=== PATIENT | male | born 1985 | race Caucasian/White ===

== ENCOUNTER 2017-07-05 14:12 | Emergency (ER) | payer SELFPAY ==
[~2017-07-05] VITALS: Ht 167.6 cm; Wt 81.8 kg
[~2017-07-05 14:12] MED LIST: BACITRACIN OP; BENTYL 10MG10 MG/CAP PO; CIPRO 500MG TA500 MG PO; LOMOTIL 0.025 M1 TAB PO; LORTAB 5/500 501 TAB PO; NO HOME MEDICATIONS; NORCO 325 MG-51 TAB PO; PEPCID 20MG TAB20 MG PO; PERCOCET 325 MG1 TA2 PO; ULTRAM50 MG PO; [UNRECOGNIZED DRUG - OTHER]; [UNRECOGNIZED DRUG - OTHER] OP
[2017-07-05 14:15] VITALS: BP 139/92; TEMP 98.6
[2017-07-05] MEDS ORDERED: NORCO 325 MG-51 TAB PO (15:33)
[2017-07-05] MEDS ORDERED: FLEXERIL 1010 MG/TAB PO (15:33)
[2017-07-05 15:45] VITALS: PULSE 77
== END 2017-07-05 15:47 | disposition home or self-care (01) ==
LOC: COL.ER 14:12
DX: S29.002A Unspecified injury of muscle and tendon of back wall of thorax, initial encounter (principal); M62.830 Muscle spasm of back; X50.0XXA Overexertion from strenuous movement or load, initial encounter
CPT/HCPCS: J1170; J1885; J2360

== ENCOUNTER 2017-08-03 09:49 | Outpatient (RCR) | payer OTHER ==
[~2017-08-03 09:49] MED LIST changes: +FLEXERIL 1010 MG/TAB PO
== END 2017-10-10 | disposition home or self-care (01) ==
LOC: WSOH
DX: S29.012A Strain of muscle and tendon of back wall of thorax, initial encounter (principal); X50.0XXA Overexertion from strenuous movement or load, initial encounter; Y99.0 Civilian activity done for income or pay

== ENCOUNTER 2021-03-18 11:16 | Emergency (ER) | payer BC ==
[~2021-03-18] VITALS: Ht 167.6 cm; Wt 104.5 kg
[2021-03-18 11:25] VITALS: BP 169/91
[2021-03-18] MEDS ORDERED: NORFLEX 10100 MG/TAB PO (13:41)
[2021-03-18 13:49] VITALS: PULSE 95
== END 2021-03-18 13:49 | disposition home or self-care (01) ==
LOC: COL.ER 11:16
DX: M54.5 Low back pain (principal)

== ENCOUNTER 2021-10-07 10:45 | Emergency (ER) | payer SELFPAY ==
[~2021-10-07] VITALS: Ht 167.6 cm; Wt 113.6 kg
[~2021-10-07 10:45] MED LIST changes: +NORFLEX 10100 MG/TAB PO
[2021-10-07 11:43] VITALS: BP 160/108; PULSE 97; TEMP 98.7
[2021-10-07] MEDS ORDERED: PREDNISONE20 MG PO (14:05)
== END 2021-10-07 14:15 | disposition home or self-care (01) ==
LOC: COL.ER 10:45
DX: R06.02 Shortness of breath (principal)
CPT/HCPCS: Q9967

== ENCOUNTER 2021-11-03 11:31 | Outpatient (RCR) | payer OTHER ==
[~2021-11-03 11:31] MED LIST changes: +PREDNISONE20 MG PO
== END 2021-11-19 | disposition still patient (30) ==
LOC: WSOH
DX: T65.831A Toxic effect of fiberglass, accidental (unintentional), initial encounter (principal); J98.01 Acute bronchospasm; Y99.0 Civilian activity done for income or pay; G47.30 Sleep apnea, unspecified; Z98.890 Other specified postprocedural states

== ENCOUNTER → 2021-12-12 | Outpatient (CLI) | payer SELFPAY | LOC: COL.RAD 11-07 14:00 | DX: R51.9 Headache, unspecified (principal); R90.82 White matter disease, unspecified ==

== ENCOUNTER 2022-03-14 20:48 | Emergency (ER) | payer OTHER ==
[~2022-03-14] VITALS: Ht 167.6 cm; Wt 113.6 kg
[2022-03-14 21:08] VITALS: TEMP 98.2
[2022-03-14 22:18] LABS: BASO # 0.1 K/mm3 (0.0-0.2); BASO % 0.6 % (0.0-2.0); EOS # 0.3 K/mm3 (0.0-0.7); EOS % 2.9 % (0.0-4.0); GRAN # 6.1 K/mm3 (1.4-6.5); GRAN % 67.7 % (42.2-75.2); HEMATOCRIT 45.5 % (42.0-52.0); HEMOGLOBIN 16.6 g/dl (13.5-18.0); LYMPH # 1.8 K/mm3 (1.2-3.4); LYMPH % 19.8 % (20.0-51.0); MEAN CELL VOLUME 87 fl (80.0-100.0); MEAN CORPUSCULAR HEMOGLOBIN 32 pg (27-31); MEAN CORPUSCULAR HGB CONC 37 g/dl (33.0-37.0); MEAN PLATELET VOLUME 9.6 fl (7.4-10.4); MONO # 0.8 K/mm3 (0.1-0.6); MONO % 8.7 % (1.7-9.3); PLATELET COUNT 329 K/mm3 (130-400); RED BLOOD COUNT 5.23 M/mm3 (4.20-5.60); REDCELL DISTRIBUTION WIDTH-CV 11.6 % (11.5-14.5)
[2022-03-14 22:33] LABS: ALBUMIN 4.2 gm/dL (3.5-5.0); BILIRUBIN,TOTAL 0.8 mg/dL (0.2-1.2); CALCIUM 9.6 mg/dL (8.4-10.2); CREATININE, serum 0.87 mg/dL (0.72-1.25); TOTAL PROTEIN 7.8 gm/dL (6.2-8.1)
[2022-03-14] MEDS ORDERED: NORCO 325 MG-51 TAB PO (22:54)
[2022-03-14 23:30] VITALS: BP 152/78; PULSE 76
== END 2022-03-14 23:30 | disposition home or self-care (01) ==
LOC: COL.ER 20:48
PROVIDERS: Family Medicine
DX: M79.622 Pain in left upper arm (principal)
CPT/HCPCS: J1100

== ENCOUNTER 2022-08-21 12:03 | Emergency (ER) | payer OTHER ==
[~2022-08-21] VITALS: Ht 167.6 cm; Wt 113.6 kg
[2022-08-21 12:25] VITALS: TEMP 98.4
[2022-08-21] MEDS ORDERED: CRUTCHES MC ×3 (13:22→13:44)
[2022-08-21 13:30] VITALS: BP 132/78; PULSE 88
== END 2022-08-21 14:00 | disposition home or self-care (01) ==
LOC: COL.ER 12:03
DX: S99.911A Unspecified injury of right ankle, initial encounter (principal); W11.XXXA Fall on and from ladder, initial encounter; X50.1XXA Overexertion from prolonged static or awkward postures, initial encounter

== ENCOUNTER 2023-12-02 20:43 | Emergency (ER) | payer OTHER ==
[~2023-12-02] VITALS: Ht 167.6 cm; Wt 123.6 kg
[~2023-12-02 20:43] MED LIST changes: +CRUTCHES MC
[2023-12-02] MEDS ORDERED: Acetaminophen 500 MG TAB PO ONE (21:00)
[2023-12-02 21:36] LABS: BASO # 0.1 K/mm3 (0.0-0.2); BASO % 0.9 % (0.0-2.0); EOS # 0.4 K/mm3 (0.0-0.7); EOS % 3.6 % (0.0-4.0); GRAN # 6.2 K/mm3 (1.4-6.5); GRAN % 58.8 % (42.2-75.2); HEMATOCRIT 46.1 % (42.0-52.0); HEMOGLOBIN 16.9 g/dl (13.5-18.0); MEAN CELL VOLUME 88 fl (80.0-100.0); MEAN CORPUSCULAR HEMOGLOBIN 32 pg (27-31); MEAN CORPUSCULAR HGB CONC 37 g/dl (33.0-37.0); MEAN PLATELET VOLUME 9.9 fl (7.4-10.4); MONO # 0.9 K/mm3 (0.1-0.6); MONO % 8.4 % (1.7-9.3); PLATELET COUNT 335 K/mm3 (130-400); RED BLOOD COUNT 5.25 M/mm3 (4.20-5.60); REDCELL DISTRIBUTION WIDTH-CV 11.9 % (11.5-14.5)
[2023-12-02 21:54] LABS: ALANINE AMINOTRANSFERASE 72 U/L (0-55); ALBUMIN 4.3 g/dL (3.5-5.0); ALKALINE PHOSPHATASE 68 U/L (40-150); ANION GAP 14 mmol/L (7-16); AST,SGOT 42 U/L (5-34); BILIRUBIN,TOTAL 0.6 mg/dL (0.2-1.2); BLOOD UREA NITROGEN 13 mg/dL (9-21); CALCIUM 10.4 mg/dL (8.4-10.2); CHLORIDE 104 mEq/L (98-107); CREATININE, serum 1.06 mg/dL (0.72-1.25); D-DIMER < 200.00 ng/mLDDu (200-230); GLUCOSE 82 mg/dL (70-99); LIPASE 43 U/L (8-78); PARTIAL THROMBOPLASTIN TIME 31.9 SECONDS (26.0-37.0); PROTHROMBIN TIME 10.9 SECONDS (9.7-12.8); SODIUM 142 mEq/L (136-145); TOTAL PROTEIN 8.1 g/dl (6.2-8.1)
[2023-12-02 22:08] LABS: TROPONIN-I < 0.010 ng/mL (0.00-0.033)
[2023-12-03] MEDS ORDERED: NORVASC 5MG5 MG/TAB PO (01:04)
[2023-12-03 01:10] VITALS: BP 152/101; PULSE 77; TEMP 98.7
[2023-12-03] MEDS ORDERED: amLODIPine 5 MG TAB PO ONE (01:15)
== END 2023-12-03 01:10 | disposition home or self-care (01) ==
LOC: COL.ER 20:43
PROVIDERS: Emergency Medicine
DX: I10 Essential (primary) hypertension (principal); E87.6 Hypokalemia; I45.10 Unspecified right bundle-branch block